=== PATIENT | female | born 1985 | race Caucasian/White ===

== ENCOUNTER 2017-02-10 11:16 | Inpatient (IN) | payer MEDICAID ==
[~2017-02-10] VITALS: Ht 175.3 cm; Wt 146.3 kg
[~2017-02-10 11:16] MED LIST: ACET-2723 PO; BUSP10TA3 PO; BUTA1CAP53; OMEP20CA10 PO; PREN1TAB73 PO; PROM25TA7 PO; SUCR1ORA3 PO
--- OUTSIDE RECORDS SUMMARY | 2017-02-10 14:07 | XMS REPORT | Continuity of Care Document ---
Author Author [facility] Organization [facility] Address Unknown Phone Unavailable Support Name Relationship Address Phone ELSA CORMIER MD Caregiver [address] [place] [address] Unavailable WENDY COFFMAN MD Caregiver [address] [place] [address] Unavailable JOHANN CRUZITO Next Of Kin [address] [place], [place] [id number] Insurance Providers Guarantor SethJesenia xiongtiesha Cifuentes Address [address] [place] [address] Email DENIED/NO TO PT PORT 16 Payer [facility] Policy Number [id number] Subscriber's Name Tootie Ann Relationship 18 Self Effective Date 16 Expiration Date 16 Advance Directives Directive Response Recorded Date/Time Ordered Resuscitation Status Full Code 12/03/16 5:56pm Problems Active Problems Medical Problem Onset Date Status Alcohol abuse Unknown Anxiety disorder Unknown Anxiety during in second trimester, antepartum Unknown Chronic Chronically on benzodiazepine therapy Unknown Chronic Diarrhea Unknown GERD (gastroesophageal reflux disease) Unknown Gastroenteritis Unknown Acute Gastroenteritis Unknown Acute History of methamphetamine abuse Unknown Induced Unknown Acute Influenza Unknown Acute Leukocytosis Unknown Acute Major depressive disorder Unknown with 16 completed weeks gestation Unknown Acute Proteinuria affecting in second trimester Unknown Recurrent epigastric abdominal pain Unknown Acute SAB (spontaneous ) Unknown Temporomandibular jaw dysfunction Unknown Acute Xanax use disorder, mild, abuse Unknown Past Problems Medical Problem Onset Date Low back pain Unknown Swelling of lower extremity during Unknown Vaginal bleeding in Unknown Medications Current Home Medications Medication Dose Units Route Directions Days Qty Instructions Start Date Acetaminophen (Tylenol Extra Strength) 500 Mg Tablet 1-2 Tab Oral Every 6 Hours as needed for Pain/Fever 12/03/16 Buspirone Hcl 10 Mg Tablet 10 Mg Oral Three Times A Day as needed for Anxiety 90 Tablet 09/12/16 Butalb/Acetaminophen/Caffeine (Fioricet 50-300-40 Mg Capsule) 1 Each Capsule 1 Cap 12/03/16 Omeprazole 20 Mg Capsule.dr 20 Mg Oral Before Breakfast 30 Capsule Take 1 capsule, by mouth, one time a day (before breakfast). 11/07/16 Pnv95/Ferrous Fumarate/Fa ( Tablet) 1 Each Tablet 1 Tab Oral Daily 08/12/16 Promethazine Hcl 25 Mg Tablet 25 Mg Oral As Needed 08/12/16 Sucralfate (Carafate) 1 Gm/10 Ml Oral.susp 1 G Oral Daily Past Home Medications Medication Directions Ordered Status Acetaminophen/Hydrocodone Bitart ([place] 7.5-325 Tablet) 7.5-325 Tablet, 1 Tab Oral Every 4 Hours as needed for Pain 09/12/16 Discontinued Acetaminophen/Hydrocodone Bitart ([place] 10-325 Tablet) 1 Each Tablet, 1 Tab Oral Every 4 Hours 05/15/15 Discontinued Alprazolam (Xanax) 2 Mg Tablet, 2 Mg Oral Daily 08/12/16 Discontinued Buspirone Hcl Unknown Strength Tablet, 1 Tab Oral Twice A Day 08/12/16 Discontinued Cephalexin Monohydrate (Keflex) 500 Mg Capsule, 500 Mg Oral Three Times A Day 11/28/10 Discontinued Cyclobenzaprine Hcl (Flexeril) 10 Mg Tablet, 10 Mg Oral Daily 11/28/10 Discontinued Enzymes,Digestive (Digestive Enzymes) 1 Tab.chew Tab.chew, 2 Tab.chew Oral With Meals 08/07/12 Discontinued Hydrocodone/Acetaminophen ([place] 5-325 Tablet) 1 Each Tablet, 1 Tab Oral Four Times Daily as needed for Pain, Cough 11/06/14 Discontinued Milk Thistle Seed Extract (Milk Thistle) 140 Mg Capsule, Daily 11/06/14 Discontinued Omeprazole 20 Mg Capsule.dr, 20 Mg Oral Before Breakfast 09/12/16 Discontinued Ranitidine Hcl (Zantac 75) 75 Mg Tablet, 75 Mg Oral As Needed 09/16/11 Discontinued Social History Social History Problem Response Recorded Date/Time Onset Date Status Chewing Tobacco Status No 04/23/2014 9:00pm Not Applicable Not Applicable Hx Substance Use Y MARIJUANA OCCASIONALLY 08/12/2016 4:05pm Not Applicable Not Applicable Hx Alcohol Use Y DENIES 08/12/2016 4:05pm Not Applicable Not Applicable Has the pt used tobacco in the last 12 months Yes 11/07/2016 5:55pm Not Applicable Not Applicable Tobacco Usage smoke 04/25/2014 4:31am Not Applicable Not Applicable Query Response Start Date Stop Date Smoking Status Current every day smoker Hospital Discharge Instructions No hospital discharge instructions. Plan of Care Discharge Date 12/03/16 6:51pm Prescriptions See Medication Section Functional Status No functional status results. Allergies, Adverse Reactions, Alerts Allergen Type Severity Reaction Status Last Updated Cephalexin Monohydrate Allergy Severe THROAT SWELLS Active 08/12/16 NSAIDS (Non-Steroidal Anti-Inflamma Allergy Severe ULCER Active 08/12/16 Penicillin Allergy Severe SWOLLEN THROAT Active 08/12/16 Sulfa (Sulfonamide Antibiotics) Adverse Reaction Unknown HALLUCINATIONS Active 08/12/16 Tramadol Allergy Severe convulsions Active 08/12/16 Latex Allergy Unknown Active 08/12/16 Immunizations Query Response on File Recorded Date/Time Hx Influenza Vaccination N refused 11/07/16 5:55pm Hx Pneumococcal Vaccination No 11/07/16 5:55pm Hx Tetanus, Diptheria, Pertussis No 07/19/15 9:11pm Hx Influenza Vaccination N refused 11/07/16 5:55pm Hx Tetanus Diptheria No 07/19/15 9:11pm Hx Tetanus, Diptheria, Pertussis No 07/19/15 9:11pm Influenza Vaccine Hx never 09/11/16 12:22pm Tdap Vaccine Hx SKIN INTACT 08/12/16 4:10pm Vital Signs Acute Vital Signs Vital Response Date/Time Temperature (Fahrenheit) 98.5 deg F (96.8 - 99.1) 09/12/2016 4:19pm Temperature (Calculated Celsius) 36.21964 degrees C (36.0 - 37.3) 09/12/2016 4:19pm Pulse Rate (adult) 86 bpm (60 - 100) 09/12/2016 4:19pm Respiratory Rate 18 breaths/min (10 - 20) 11/07/2016 5:58pm O2 Sat by Pulse Oximetry 97 % (90 - 100) 09/12/2016 4:19pm Oxygen Delivery Method Room Air 09/12/2016 4:19pm Blood Pressure 117/69 mm Hg 09/12/2016 4:19pm Blood Pressure Source Automatic Cuff 09/12/2016 4:19pm Height (Feet) 5 feet 11/07/2016 5:52pm Height (Inches) 9.00 inches 11/07/2016 5:52pm Weight (Kilograms) 135.800 kg 11/07/2016 5:52pm Body Mass Index (BMI) 44.2 11/07/2016 5:52pm Results Laboratory Results Test Name Result Units Flags Reference Collection Date/Time Result Date/ Time Comments Neutrophils (%) (Auto) 67.2 % H 33-66 09/12/2016 4:05am 09/12/2016 5: 20am Lymphocytes (%) (Auto) 24.6 % 23-45 09/12/2016 4:05am 09/12/2016 5: 20am Monocytes (%) (Auto) 6.1 % 0-9.0 09/12/2016 4:05am 09/12/2016 5:20am Eosinophils (%) (Auto) 0.8 % 0-4 09/12/2016 4:05am 09/12/2016 5:20am Basophils (%) (Auto) 0.2 % 0-2 09/12/2016 4:05am 09/12/2016 5:20am Immature Granulocyte % (Auto) 1.1 % H 0.0-0.5 09/12/2016 4:05am 2015 5:20am Absolute Neutrophils (auto) 7.4 T/MM3 1.8-7.7 09/12/2016 4:05am 2015 5:20am Absolute Lymphocytes (auto) 2.7 T/MM3 1-4.8 09/12/2016 4:05am 2015 5:20am Absolute Monocytes (auto) 0.7 T/MM3 0-0.8 09/12/2016 4:05am 09/12/2016 5:20am Absolute Eosinophils (auto) 0.1 T/MM3 0-0.5 09/12/2016 4:05am 2015 5:20am Absolute Basophils (auto) 0.0 T/MM3 0-0.2 09/12/2016 4:05am 09/12/2016 5:20am Absolute Immature Granulocyte (auto 0.12 T/MM3 H 0.00-0.03 09/12/2016 4: 05am 09/12/2016 5:20am Lipase 27 U/L 23-300 09/11/2016 1:39pm 09/11/2016 2:28pm Magnesium Level 1.9 MG/DL 1.6-2.3 09/12/2016 4:05am 09/12/2016 5:37am Hepatitis C Antibody NEGATIVE NEGATIVE 09/11/2016 1:39pm 09/13/2016 2 :46am Stool Campylobacter PCR NEGATIVE NEGATIVE 09/11/2016 10:26pm 2015 12:21am Stool C. difficile Toxin (PCR) NEGATIVE NEGATIVE 09/11/2016 10:26pm 09/12/2016 12:21am Stool Plesiomonas shigelloides PCR NEGATIVE NEGATIVE 09/11/2016 10: 26pm 09/12/2016 12:21am Stool Salmonella PCR NEGATIVE NEGATIVE 09/11/2016 10:26pm 09/12/2016 12:21am Stool Vibrio (PCR) NEGATIVE NEGATIVE 09/11/2016 10:26pm 09/12/2016 12 :21am Stool Vibrio cholera (PCR) NEGATIVE NEGATIVE 09/11/2016 10:26pm 09/12 12:21am Stool Yersinia enterocolitica (PCR) NEGATIVE NEGATIVE 09/11/2016 10: 26pm 09/12/2016 12:21am Stool Enteroaggregative E. coli PCR NEGATIVE NEGATIVE 09/11/2016 10: 26pm 09/12/2016 12:21am Stool Enteropathogenic E. coli (PCR NEGATIVE NEGATIVE 09/11/2016 10: 26pm 09/12/2016 12:21am Stool Enterotoxigenic Ecoli PCR NEGATIVE NEGATIVE 09/11/2016 10:26pm 09/12/2016 12:21am Stool E. coli Shiga Toxins NEGATIVE NEGATIVE 09/11/2016 10:26pm 09/12 12:21am Stool E coli O157 PCR N/A NA/NEG 09/11/2016 10:26pm 09/12/2016 12: 21am Stool Shigella/EIEC (PCR) NEGATIVE NEGATIVE 09/11/2016 10:26pm 2015 12:21am Stool Cryptosporidium PCR NEGATIVE NEGATIVE 09/11/2016 10:26pm 2015 12:21am Stool Cyclospora species Detection NEGATIVE NEGATIVE 09/11/2016 10: 26pm 09/12/2016 12:21am Stool Entamoeba (PCR) NEGATIVE NEGATIVE 09/11/2016 10:26pm 2015 12:21am Stool Giardia Lamblia PCR NEGATIVE NEGATIVE 09/11/2016 10:2015 12:21am Stool Adenovirus (PCR) NEGATIVE NEGATIVE 09/11/2016 10:2015 12:21am Stool Astrovirus (PCR) NEGATIVE NEGATIVE 09/11/2016 10:2015 12:21am Stool Norovirus GI/GII PCR NEGATIVE NEGATIVE 09/11/2016 10:pm 09/12 12:21am Stool Rotavirus A PCR NEGATIVE NEGATIVE 09/11/2016 10:2015 12:21am Stool Sapovirus (PCR) NEGATIVE NEGATIVE 09/11/2016 10:2015 12:21am Urine Collection Type CLEANCATCH-MIDSTREAM 09/11/2016 2:2015 2:38pm Urine Color YELLOW YELLOW 09/11/2016 2:09/11/2016 2:38pm Urine Turbidity CLEAR CLEAR 09/11/2016 2:09/11/2016 2:38pm Urine Specific [place] >=1.030 H 1.015-1.025 09/11/2016 2:2015 2:38pm Urine pH 6.0 5.0-8.0 09/11/2016 2:09/11/2016 2:38pm Urine Leukocyte Esterase NEGATIVE NEGATIVE 09/11/2016 2:2015 2:38pm Urine Nitrite NEGATIVE NEGATIVE 09/11/2016 2:09/11/2016 2:38pm Urine Protein NEGATIVE NEGATIVE 09/11/2016 2:09/11/2016 2:38pm Urine Glucose (UA) 1+ A NEGATIVE 09/11/2016 2:09/11/2016 2:38pm Urine Ketones 3+ A NEGATIVE 09/11/2016 2:09/11/2016 2:38pm Urine Urobilinogen 0.2 EU/DL NORMAL 09/11/2016 2:09/11/2016 2: 38pm Urine Bilirubin NEGATIVE NEGATIVE 09/11/2016 2:09/11/2016 2: 38pm Urine Blood 2+ A NEGATIVE 09/11/2016 2:09/11/2016 2:38pm Urine WBC 1-3 /HPF 0-5 09/11/2016 2:pm 09/11/2016 2:55pm Urine RBC 1-3 /HPF 0-3 09/11/2016 2:22pm 09/11/2016 2:55pm Urine Squamous Epithelial Cells 5-10 09/11/2016 2:22pm 09/11/2016 2 :55pm Urine Bacteria 2+ H NEGATIVE 09/11/2016 2:22pm 09/11/2016 2:55pm Urine Mucus PRESENT 09/11/2016 2:22pm 09/11/2016 2:55pm Urine Culture Indicated CULT NOT INDICATED 09/11/2016 2:22pm 2015 2:55pm White Blood Count 15.9 T/MM3 H 4.5-11.0 11/07/2016 5:00pm 11/07/2016 5: 24pm Red Blood Count 3.65 M/MM3 L 4.00-5.20 11/07/2016 5:00pm 11/07/2016 5: 24pm Hemoglobin 11.2 GM/DL L 12-16 11/07/2016 5:00pm 11/07/2016 5:24pm Hematocrit 32.6 % L 36-46 11/07/2016 5:00pm 11/07/2016 5:24pm Mean Corpuscular Volume 89.3 UM3 80-100 11/07/2016 5:00pm 11/07/2016 5: 24pm Mean Corpuscular Hemoglobin 30.7 UUG 26-34 11/07/2016 5:00pm 2016 5:24pm Mean Corpuscular Hemoglobin Concent 34.4 GM/DL 31-37 11/07/2016 5:00pm 11/07/2016 5:24pm RDW Standard Deviation 41.8 FL 36.9-50.2 11/07/2016 5:00pm 11/07/2016 5 :24pm Platelet Count 237 T/MM3 130-400 11/07/2016 5:00pm 11/07/2016 5:24pm Mean Platelet Volume 11.0 UM3 9.4-12.4 11/07/2016 5:00pm 11/07/2016 5: 24pm Neutrophils % (Manual) 67.0 % H 33-66 11/07/2016 5:00pm 11/07/2016 6: 12pm Band Neutrophils % 3.0 % 0-6 11/07/2016 5:00pm 11/07/2016 6:12pm Lymphocytes % (Manual) 25.0 % 23-45 11/07/2016 5:00pm 11/07/2016 6: 12pm Monocytes % (Manual) 3.0 % 0-9.0 11/07/2016 5:00pm 11/07/2016 6:12pm Eosinophils % (Manual) 1.0 % 0-4 11/07/2016 5:00pm 11/07/2016 6:12pm Metamyelocytes % 1.0 % H 0-0 11/07/2016 5:00pm 11/07/2016 6:12pm Band Neutrophils # 0.5 T/MM3 11/07/2016 5:00pm 11/07/2016 6:12pm Absolute Neutrophils (Manual) 10.7 T/MM3 H 1.8-7.7 11/07/2016 5:00pm 06/2017 6:12pm Lymphocytes # (Manual) 4.0 T/MM3 1-4.8 11/07/2016 5:00pm 11/07/2016 6: 12pm Monocytes # (Manual) 0.5 T/MM3 0-0.8 11/07/2016 5:00pm 11/07/2016 6: 12pm Eosinophils # (Manual) 0.2 T/MM3 0-0.5 11/07/2016 5:00pm 11/07/2016 6: 12pm Metamyelocytes # 0.2 T/MM3 11/07/2016 5:00pm 11/07/2016 6:12pm Red Cell Morphology Comment NORMAL 11/07/2016 5:00pm 11/07/2016 6: 12pm Icterus Index < 2 0-7 11/07/2016 5:00pm 11/07/2016 5:31pm Chemistry Specimen Hemolysis < 15 0-25 11/07/2016 5:00pm 11/07/2016 5 :31pm 0-25: Specimen Exhibited No Hemolysis. Turbidity < 20 0-20 11/07/2016 5:00pm 11/07/2016 5:31pm Sodium Level 137 MEQ/L 134-144 11/07/2016 5:00pm 11/07/2016 5:31pm Potassium Level 3.6 MEQ/L 3.6-5 11/07/2016 5:00pm 11/07/2016 5:31pm Chloride Level 106 MEQ/L 98-107 11/07/2016 5:00pm 11/07/2016 5:31pm Carbon Dioxide Level 23 MEQ/L 22-30 11/07/2016 5:00pm 11/07/2016 5: 31pm Anion Gap 8 MEQ/L 5-15 11/07/2016 5:00pm 11/07/2016 5:31pm Blood Urea Nitrogen 7.0 MG/DL 7-17 11/07/2016 5:00pm 11/07/2016 5:31pm Creatinine 0.5 MG/DL L 0.7-1.2 11/08/2016 7:00pm 11/08/2016 8:01pm BUN/Creatinine Ratio 14 RATIO 6-26 11/07/2016 5:00pm 11/07/2016 5:31pm Glomerular Filtration Rate Calc 142 11/08/2016 7:00pm 11/08/2016 8: 01pm Glucose Level 82 MG/DL 65-110 11/07/2016 5:00pm 11/07/2016 5:31pm Calculated Osmolality 261 MOSM/KG 261-280 11/07/2016 5:00pm 11/07/2016 5:31pm Calcium Level 9.1 MG/DL 8.4-10.2 11/07/2016 5:00pm 11/07/2016 5:31pm Total Bilirubin 0.30 MG/DL 0.20-1.30 11/07/2016 5:00pm 11/07/2016 5: 31pm Alkaline Phosphatase 90 U/L 38-126 11/07/2016 5:00pm 11/07/2016 5:31pm Total Protein 6.4 G/DL 6.3-8.2 11/07/2016 5:00pm 11/07/2016 5:31pm Albumin 3.6 G/DL 3.5-5.0 11/07/2016 5:00pm 11/07/2016 5:31pm Globulin 2.8 G/DL 2.4-3.6 11/07/2016 5:00pm 11/07/2016 5:31pm Albumin/Globulin Ratio 1.3 RATIO 1.1-2.2 11/07/2016 5:00pm 11/07/2016 5 :31pm Aspartate Amino Transf (AST/SGOT) 17 U/L 14-36 11/07/2016 5:00pm 2016 5:31pm Alanine Aminotransferase (ALT/SGPT) 26 U/L 9-52 11/07/2016 5:00pm 11/07 5:31pm Urine Creatinine 110.5 MG/DL 11/08/2016 7:00pm 11/08/2016 8:12pm Creatinine Clearance 24 Hour 183.0 ML/MIN H 75-115 11/08/2016 7:00pm 07/2017 8:12pm Patient Height (Urine) 175.3 CM 11/08/2016 7:00pm 11/08/2016 8:01pm Patient Weight (Urine) 136 KG 11/08/2016 7:00pm 11/08/2016 8:01pm Urine Total Volume 1.700 L 11/08/2016 7:00pm 11/08/2016 8:01pm Urine Collection Time 24 HRS 11/08/2016 7:00pm 11/08/2016 8:01pm U Collection Duration (Protein) 24 Hr 11/07/2016 7:00pm 11/09/2016 11 :39pm Protein Timed Urine performed at [facility], [address] [place] [address] Buying Intern Stephanie Oliver DO Urine Total Protein mg/dL 7 mg/dL 1-14 11/07/2016 7:00pm 11/09/2016 11: 46pm Urine Total Protein Timed 119.0 mg/24hrs 0.0-299.0 11/07/2016 7:00pm 11:46pm Value may increase up to 300mg/24hour following exercise. Reported as mg/hrs collected, reference range is based on 24 hr collection. Urine Total Volume 1700 mL 11/07/2016 7:00pm 11/09/2016 11:39pm Procedures Procedure Status Date Provider(s) Routine venipuncture Completed 09/11/16 Routine venipuncture Completed 09/11/16 Us exam abdom complete Completed 09/11/16 Comprehen metabolic panel Completed 09/11/16 Urinalysis auto w/scope Completed 09/11/16 Assay of lipase Completed 09/11/16 Assay of magnesium Completed 09/11/16 Complete cbc w/auto diff wbc Completed 09/11/16 Hepatitis c ab test Completed 09/11/16 Iadna-dna/rna probe tq 12-25 Completed 09/11/16 Ther/proph/diag iv inf init Completed 09/11/16 Ther/proph/diag iv inf addon Completed 09/11/16 Ther/proph/diag iv inf addon Completed 09/11/16 Tx/proph/dg addl seq iv inf Completed 09/11/16 Tx/pro/dx inj new drug addon Completed 09/11/16 Tx/pro/dx inj new drug addon Completed 09/11/16 Tx/pro/dx inj same drug licensed home inspector Completed 09/11/16 Tx/pro/dx inj same drug licensed home inspector Completed 09/11/16 Behav chng smoking 3-10 min Completed 09/11/16 Behav chng smoking 3-10 min Completed 09/11/16"HOSPITAL OBSERVATION SERVICE, PER HOUR" Completed 09/11/16"HOSPITAL OBSERVATION SERVICE, PER HOUR" Completed 09/11/16"HOSPITAL OBSERVATION SERVICE, PER HOUR" Completed 09/11/16"HOSPITAL OBSERVATION SERVICE, PER HOUR" Completed 09/11/16"INJECTION, HYDROMORPHONE, UP TO 4 MG" Completed 09/11/16"INJECTION, HYDROMORPHONE, UP TO 4 MG" Completed 09/11/16"INJECTION, HYDROMORPHONE, UP TO 4 MG" Completed 09/11/16"INJECTION, HYDROMORPHONE, UP TO 4 MG" Completed 09/11/16"INJECTION, HYDROMORPHONE, UP TO 4 MG" Completed 09/11/16"INJECTION, HYDROMORPHONE, UP TO 4 MG" Completed 09/11/16"INJECTION, HYDROMORPHONE, UP TO 4 MG" Completed 09/11/16"INJECTION, HYDROMORPHONE, UP TO 4 MG" Completed 09/11/16"INJECTION, DIMENHYDRINATE, UP TO 50 MG" Completed 09/11/16"INJECTION, DIMENHYDRINATE, UP TO 50 MG" Completed 09/11/16"INJECTION, DIMENHYDRINATE, UP TO 50 MG" Completed 09/11/16"INJECTION, DIMENHYDRINATE, UP TO 50 MG" Completed 09/11/16"INJECTION, DIMENHYDRINATE, UP TO 50 MG" Completed 09/11/16"INJECTION, ONDANSETRON HYDROCHLORIDE, PER 1 MG" Completed 09/11/16"INJECTION, ONDANSETRON HYDROCHLORIDE, PER 1 MG" Completed 09/11/16221920"INJECTION, POTASSIUM CHLORIDE, PER 2 MEQ" Completed 09/11/16391904"INJECTION, POTASSIUM CHLORIDE, PER 2 MEQ" Completed 09/11/16"INFUSION, NORMAL SALINE SOLUTION , 250 CC" Completed 09/11/16317442"INFUSION, NORMAL SALINE SOLUTION , 250 CC" Completed 09/11/16423297"INFUSION, NORMAL SALINE SOLUTION , 250 CC" Completed 09/11/16549216"INFUSION, NORMAL SALINE SOLUTION , 250 CC" Completed 09/11/16343423"RINGERS LACTATE INFUSION, UP TO 1000 CC" Completed 09/11/16 D5LR 1000 ML Completed 09/11/16 D5LR 1000 ML Completed 09/11/16 D5LR 1000 ML Completed 09/11/16 D5LR 1000 ML Completed 09/11/16 Compound Drug, Not Otherwise Classified Completed 09/11/16007594"INJECTION, FAMOTIDINE, 20 MG" Completed 09/11/16"INJECTION, FAMOTIDINE, 20 MG" Completed 09/11/16 Comprehen metabolic panel Completed 11/07/16 Creatinine clearance test Completed 11/07/16 Assay of protein urine Completed 11/07/16 Complete cbc w/auto diff wbc Completed 11/07/16 Hydrate iv infusion add-on Completed 11/07/16 Ther/proph/diag inj iv push Completed 11/07/16"HOSPITAL OBSERVATION SERVICE, PER HOUR" Completed 11/07/16"HOSPITAL OBSERVATION SERVICE, PER HOUR" Completed 11/07/16"INJECTION, NALBUPHINE HYDROCHLORIDE, PER 10 MG" Completed 11/07/16"RINGERS LACTATE INFUSION, UP TO 1000 CC" Completed 11/07/16 Encounters Encounter Location Arrival/Admit Date Discharge/Depart Date Attending Provider Departed Clinic [facility] 12/03/16 5:36pm 12/03/16 6:51pm ELSA CORMIER MD Discharged Inpatient (obs) [facility] 11/07/16 4:23pm 11/07/16 7: 35pm ELSA CORMIER MD Discharged Inpatient (obs) [facility] 09/11/16 11:46am 09/12/16 6 :50pm JESUS COHN MD
[2017-02-10] MEDS ORDERED: CALCIUM CARBONATE 500mg Chewable TAB PO PRN (15:15)
[2017-02-10] MEDS ORDERED: TERBUTALINE 1 MG/ML INJECTION SQ PRN ×2 (15:15→17:15)
[2017-02-10] MEDS ORDERED: DINOPROSTONE 10 MG VAGINAL INSERT VAGINALLY ONE ×2 (15:15→17:15)
[2017-02-10] MEDS ORDERED: DiphenhydrAMINE 25 MG CAPSULE PO PRN ×2 (15:15→17:15)
[2017-02-10] MEDS ORDERED: LIDOCAINE 1% (10mg/ml) 2ml SDV ID PRN (15:15)
[2017-02-10] MEDS ORDERED: MAG-AL + SIM LIQUID 30 ML UDC PO PRN (15:15)
[2017-02-10 15:25] LABS: HCT - HEMATOCRIT 31.4 % (36-46); HGB - HEMOGLOBIN 10.1 GM/DL (12-16); MEAN CORPUSCULAR HGB 27.3 UUG (26-34); MEAN CORPUSCULAR HGB CONC(MCHC 32.2 GM/DL (31-37); MEAN CORPUSCULAR VOLUME 84.9 UM3 (80-100); MEAN PLATELET VOLUME 10.8 UM3 (9.4-12.4); RED BLOOD COUNT 3.7 M/MM3 (4.00-5.20); WBC - WHITE BLOOD COUNT 15.3 T/MM3 (4.5-11.0)
[2017-02-10] MEDS ORDERED: AMIT10TA6 PO (15:45)
[2017-02-10 15:51] VITALS: BP 119/77; PULSE 105; RESP 20; TEMP 98.4; O2SAT 98
[2017-02-10 16:40] LABS: ALBUMIN 3.6 G/DL (3.5-5.0); ALBUMIN/GLOBULIN RATIO 1.1 RATIO (1.1-2.2); ALKALINE PHOSPHATASE 151 U/L (38-126); ALT (SGPT) 23 U/L (9-52); ANION GAP 12 MEQ/L (5-15); AST (SGOT) 20 U/L (14-36); BUN/CREATININE RATIO 18 RATIO (6-26); CALCIUM 9.3 MG/DL (8.4-10.2); CHLORIDE 106 MEQ/L (98-107); CO2 - CARBON DIOXIDE 19 MEQ/L (22-30); CREATININE 0.5 MG/DL (0.7-1.2); GLOMERULAR FILTRATION RATE 142; GLUCOSE 131 MG/DL (65-110); POTASSIUM 4.4 MEQ/L (3.6-5); SODIUM 137 MEQ/L (134-144); TOTAL PROTEIN 6.8 G/DL (6.3-8.2)
[2017-02-10] MEDS ORDERED: D5LR 1,000 ML IV PRN (17:15)
--- NOTE | 2017-02-10 17:20 | PNPDOC ---
Progress Note Date 02/10/17 Cervidil placed without difficulty. Reviewed plan for oxytocin in 12 hours. Bedside sono confirms cephalic presentation. Normotensive at this time. Q&A ELSA CORMIER MD Feb 10, 2017 17:20
[2017-02-10] MEDS: ACETAMINOPHEN 500 MG TABLET PO PRN (19:29)
[2017-02-11] VITALS (8 sets, daily range): BP systolic 114–132; BP diastolic 68–76; PULSE 89–102; RESP 17–22; TEMP 97.9–98.2; O2SAT 94–100
[2017-02-11] MEDS: ACETAMINOPHEN 500 MG TABLET PO PRN (03:10)
[2017-02-11] MEDS ORDERED: OXYTOCIN 30 UNIT in D5LR 500 ML SCH (04:30)
[2017-02-11] MEDS ORDERED: VANCOMYCIN 1 G in NORMAL SALINE 250 ML IV SCH (05:00)
[2017-02-11] MEDS: LR 1,000 ML IV PRN ×2 (05:19→13:28)
[2017-02-11] MEDS ORDERED: ZOLPIDEM 10 MG TABLET PO SCH (09:00)
[2017-02-11] MEDS ORDERED: NALBUPHINE 10mg/ml INJECTION IV ONE (10:30)
[2017-02-11] MEDS ORDERED: CLINDAMYCIN 900mg IVPB 50 ML IV ONE (13:45)
[2017-02-11] MEDS ORDERED: CITRIC ACID/SODIUM CITRATE 30 ML PO ONE (13:45)
[2017-02-11] MEDS ORDERED: FAMOTIDINE 20mg IVPB 50 ML IV ONE (13:45)
[2017-02-11] MEDS ORDERED: GENTAMICIN 120 MG in NORMAL SALINE 100 ML IV ONE (13:45)
--- NOTE | 2017-02-11 13:54 | ANESOB ---
Epidural/ Date/Time DATE: 02/11/17 TIME: 13:52 Preop Diagnosis Procedure: Plan: Spinal Height: 5 ' 9.00 " Weight: 146.300 kg BMI: kg/m2 P:0 Medications & Allergies Inpatient Medications Current Medications Medications (Trade) Dose Ordered Sig/Messi Start Time Stop Time Status Last Admin Dose Admin Diphenhydramine HCl (Benadryl) 50 mg HS PRN 02/10/17 15:15 Terbutaline Sulfate (Brethine) 0.25 mg PRN PRN 02/10/17 15:15 Lidocaine HCl 0.2 mg 0.2 mg PRN PRN 02/10/17 15:15 02/10/17 15:37 DC Lactated Ringer's (Lactated Ringers) 1,000 ml @ 0 mls/hr Q0M PRN 02/10/17 15:07 02/11/17 05:19 0 MLS/HR Acetaminophen (Tylenol Extra Strength) 1-2 TABS = 500-1,000 MG Q4H PRN 02/10/17 15:15 02/11/17 03:10 1,000 MG Al Hydroxide/Mg Hydroxide (Maalox) 30 ml Q4H PRN 02/10/17 15:15 Calcium Carbonate (TUMS Regular Strength) 1-2 TABS Q2H PRN 02/10/17 15:15 Diphenhydramine HCl (Benadryl) 50 mg HS PRN 02/10/17 17:15 02/10/17 19:51 DC Terbutaline Sulfate (Brethine) 0.25 mg PRN PRN 02/10/17 17:15 02/10/17 19:51 DC Zolpidem Tartrate 10 mg 10 mg DAILY 02/11/17 09:00 02/10/17 21:59 10 MG Dextrose/Lactated Ringer's 1,000 ml @ 0 mls/hr Q0M PRN 02/10/17 17:15 02/11/17 05:18 0 MLS/HR Oxytocin 30 unit/ Dextrose/Lactated Ringer's 503 ml @ 0 mls/hr Q0M 02/11/17 04:30 02/11/17 05:19 0 MLS/HR Vancomycin HCl/ Sodium Chloride (Vancocin/NS) 250 ml @ 250 mls/hr Q12H 02/11/17 05:00 02/11/17 05:19 250 MLS/HR Acetaminophen (Tylenol Extra Strength) 500 Mg Tablet, 1-2 TAB PO Q6H PRN for PAIN/FEVER, (Reported) Last Taken: on 02/10/17 1000 Amitriptyline HCl (Amitriptyline HCl) 10 Mg Tablet, 1 TAB PO DAILY, (Reported) Last Taken: on 02/09/17 2100 Omeprazole (Omeprazole) 20 Mg Capsule.dr, 20 MG PO ACB Take 1 capsule, by mouth, one time a day (before breakfast). Last Taken: on 02/10/17 1200 Pnv95/Ferrous Fumarate/FA ( Tablet) 1 Each Tablet, 1 TAB PO DAILY, (Reported) Last Taken: on 02/09/172099 Coded Allergies: Cephalexin Monohydrate (Verified Allergy, Severe, THROAT SWELLS, 08/12/16) NSAIDS (Non-Steroidal Anti-Inflamma (Verified Allergy, Severe, ULCER, ) Penicillins (Verified Allergy, Severe, SWOLLEN THROAT, 08/12/16) tramadol (Verified Allergy, Severe, convulsions, 08/12/16) latex (Verified Allergy, Unknown, 08/12/16) Sulfa (Sulfonamide Antibiotics) (Verified Adverse Reaction, Unknown, HALLUCINATIONS, 08/12/16) Medical/Surgical History Anesthesia PMH: Reports: *Hypertension (PIH), Obesity (Morbid), , Reflux (IBS), Seizures (from medication withdrawl (Xanax), also seizures from Tramadol), Denies: *Angina, *Diabetes, *Dyspnea, *OR, Anesthesia Reactions (NO AIRWAY ISSUES), Asthma, Bld Transfusion Reaction, CHF, COPD, CVA/Stroke/TIA, Cancer, Glaucoma, Hepatitis, Hiatal Hernia, Malignant Hyperthermia, Pacemaker, Pneumonia, Renal Disease, Rheumatic Fever, Sleep Apnea, Thyroid Disease, Tuberculosis Smoking Status: Current every day smoker # of Packs/Tins per Day: 1/2 Does patient use chewing tobac: No Second Hand Exposure: No Substance Use Type: former substance user, marijuana, crack/cocaine, methamphetamine, prescription drug Alcohol Intake: a few times a week Anesthesia Adverse Reactions: FOUND none Hx of Motion Sickness: No Patient's Surgical History: Appy [place] D&C x 2 Complications During : Yes (HTN, GERD) Pertinent Findings Laboratory Tests 02/10/17 15:17 02/10/17 15:19 Physical Exam Respiratory: Bilat breath sounds equal, Lungs clear Cardiovascular: Regular rate, rhythm Airway Assessment Mallampati Score: II TMD: 3 Fingerbreadths ASA: 3, E Discussion Discussed risks/options/alternatives of anesthesia. Patient consents. Nursing pain assessment noted. Attestation Statement Prior to the delivery of any anesthetic medication, I examined the patient, developed the plan, obtained the patient's consent and discussed the risk and benefits of the procedure with the patient/guardian. If the note happens to be signed after anesthesia start time, it is only due to providing efficient care of the patient and documenting at a time when the computer is available. SHALA BOLAÑOS [employer] Feb 11, 2017 13:54
[2017-02-11] MEDS ORDERED: MORPHINE SULFATE PF 5mg/10ml VL (DURAMORPH) ONE (13:58)
[2017-02-11] MEDS ORDERED: EPINEPHRINE 1mg/ml INJECTION AMP ONE (13:59)
[2017-02-11] MEDS ORDERED: ONDANSETRON 4mg/2ml INJECTION ONE (13:59)
[2017-02-11] MEDS ORDERED: FENTANYL 100mcg/2ml INJECTION ONE (13:59)
[2017-02-11] MEDS ORDERED: DiphenhydrAMINE 50 MG/ML INJECTION IV PRN (15:45)
[2017-02-11] MEDS ORDERED: NALOXONE 0.4mg/ml INJECTION IV PRN (15:45)
[2017-02-11] MEDS ORDERED: NALBUPHINE 10mg/ml INJECTION IV PRN (15:45)
[2017-02-11] MEDS ORDERED: ONDANSETRON 4mg/2ml INJECTION IV PRN ×2 (15:45→16:00)
--- NOTE | 2017-02-11 15:49 | ANESPO ---
Post-Op Note Date 02/11/17 Time: 15:48 Status Pt Participated in Evaluation: Pt participated in person Vital Signs Date Time Temp Pulse Resp B/P Pulse Ox O2 Delivery O2 Flow Rate FiO2 02/11/17 11:44 20 02/10/17 15:51 98.4 105 119/77 98 Room Air Respiratory Function: Airway patent, Regular respirations Cardiovascular Function: Regular pulse Telemetry Pattern: SR Mental Status: Alert/oriented Pain Level Intensity: 0 Unable to Assess Pain Due To: Pt Sleeping Hydration: IV infusing Complications during Recovery None apparent Follow-Up Instructions Instructions Per Surgeon SHALA BOLAÑOS CRNA Feb 11, 2017 15:49
[2017-02-11] MEDS ORDERED: OXYTOCIN 30 UNIT in D5LR 500 ML IV SCH (15:51)
[2017-02-11] MEDS ORDERED: ACETAMINOPHEN 500 MG TABLET PO PRN (16:00)
[2017-02-11] MEDS ORDERED: MILK OF MAGNESIA 30 ML SUSP PO PRN (16:00)
[2017-02-11] MEDS ORDERED: ZOLPIDEM 10 MG TABLET PO PRN (16:00)
[2017-02-11] MEDS ORDERED: HYDROCORTISONE 2.5% CREAM 30 GM RECTALLY PRN (16:00)
[2017-02-11] MEDS ORDERED: METOCLOPRAMIDE 10mg/2ml INJECTION IV PRN (16:00)
[2017-02-11] MEDS ORDERED: CALCIUM CARBONATE 500mg Chewable TAB PO PRN (16:00)
[2017-02-11] MEDS ORDERED: DiphenhydrAMINE 25 MG CAPSULE PO PRN (16:00)
[2017-02-11] MEDS ORDERED: GENTAMICIN IV ONE (16:30)
[2017-02-11] MEDS ORDERED: NS IV ONE (16:30)
[2017-02-11] MEDS: OXYCODONE/APAP 5mg/325mg TABLET PO PRN ×2 (16:54→20:46)
--- NOTE | 2017-02-11 17:38 | OPNOTEF ---
DATE OF SURGERY: 02/11/2017 PREOPERATIVE DIAGNOSES 1. 31-year-old white female, G2, P0, at 38 weeks 6 days gestational age. 2. Mild preeclampsia diagnosed by proteinuria. 3. Smoker. 4. Morbid obesity. 5. Cervidil cervical ripening. 6. Pitocin induction for preeclampsia. 7. Failure to progress. 8. GBS positive--vancomycin given. POSTOPERATIVE DIAGNOSIS Male , Apgars, 3778 grams (8 pounds 5 ounces), (Opal Sandy). PROCEDURES: Primary low transverse section. EBL: 1000 mL. PRIMARY SURGEON: Link Samson MD MANUFACTURING QUALITY TECHNICIAN: Ynes Hernandes MD COMPLICATIONS: None. However, due to patient's size and patient's request we did a midline skin incision rather than a Pfannenstiel. DESCRIPTION OF PROCEDURE After adequate spinal anesthesia, the patient was prepped and draped in the left lateral decubitus position. The patient is morbidly obese. Earlier this morning, she asked me if I would be willing to do a midline incision if she needed a because of her worries about infection in the pannus area. I told her if we got to that point we would reevaluate. After anesthesia I evaluated and I felt this was an acceptable incision to make given her situation. Therefore, a midline skin incision was made with a sharp knife starting to the left of the umbilicus and coming around and going down midline. This was carried down to the fascia which was incised vertically as well. Peritoneum was isolated, entered, and extended cephalad and caudad. Bladder blade was inserted, and I could see the uterus clearly. The patient never dilated past fingertip, and the baby was high and unengaged. Because of this, I went above the bladder and the bladder flap in my transverse incision. We knew we had an anterior placenta, and I ended up cutting the lower edge of the anterior placenta upon entering which caused a bit more bleeding than I had hoped for. The infant was in clear fluid and was delivered from the vertex position. Infant was bulb suctioned after delivery of the head and then again after delivery of the body. Cord was doubly clamped long and cut, and the infant was received by Dr. Kaushal Allen of Pediatrics. The placenta was expressed, and there is essentially no cord left to get cord blood gases so they will check baby's blood type from baby. The uterus was externalized and the bladder blade was reinserted. The uterus was cleansed with moist lap sponges. Tubes and ovaries looked fine. I closed the uterus with 0 Monocryl in a running locking fashion bilaterally from the lateral aspects medially. Hemostasis was confirmed and the posterior cul-de-sac was cleaned, and the uterus was returned to the abdominal cavity. Then I began closure of the abdominal cavity. Peritoneum was closed using 2-0 Vicryl in a running nonlocking fashion. Fascia was closed using 0 PDS in a looped suture starting at the superior apex and sewing down about two-thirds of the way, and then a different suture starting at the inferior apex and sewing up to it. Then they were tied together. Then hemostasis was achieved in the subcuticular area. We then went about closing the deep subcuticular layer. I used 2-0 Vicryl to close the Jennyfer's fascia and space. Then I used 3-0 Vicryl to bring the skin edges together and decrease the tension on the wound. Then I used maría to close the wound in a serial fashion. It was dry enough that I did not think a drain was indicated. Patient tolerated the procedure well and went to recovery room in stable condition. Because of her drug allergies, we had to give clindamycin and gentamicin preoperatively. KIANA
[2017-02-11] MEDS: SIMETHICONE 80 MG CHEWABLE TABLET PO CHEW SCH ×2 (18:30→21:32)
[2017-02-11] MEDS: D5LR 1,000 ML IV SCH (19:33)
[2017-02-11] MEDS: AMITRIPTYLINE 10 MG TABLET PO SCH (21:32)
[2017-02-11 21:38] LABS: HCT - HEMATOCRIT 31.1 % (36-46); MEAN CORPUSCULAR HGB 27.2 UUG (26-34); MEAN CORPUSCULAR HGB CONC(MCHC 32.2 GM/DL (31-37); MEAN CORPUSCULAR VOLUME 84.7 UM3 (80-100); MEAN PLATELET VOLUME 10.9 UM3 (9.4-12.4); RED BLOOD COUNT 3.67 M/MM3 (4.00-5.20); WBC - WHITE BLOOD COUNT 17.3 T/MM3 (4.5-11.0)
[2017-02-11] MEDS ORDERED: CLINDAMYCIN 900mg in D5W 50ml IV ONE (22:00)
[2017-02-11] MEDS: ALPRAZOLAM 1 MG TABLET PO PRN (23:59)
[2017-02-12] VITALS (8 sets, daily range): BP systolic 111–128; BP diastolic 71–88; PULSE 96–107; RESP 18–22; TEMP 93.3–98.2; O2SAT 95–99
[2017-02-12] MEDS: OXYCODONE/APAP 5mg/325mg TABLET PO PRN ×3 (01:01→09:34)
[2017-02-12] MEDS: D5LR 1,000 ML IV SCH ×2 (01:51→11:51)
[2017-02-12] MEDS ORDERED: OXYTOCIN 30 UNIT in D5LR 500 ML IV SCH (01:53)
--- NOTE | 2017-02-12 02:29 | NUR ---
Chart Check 24 hour chart check completed
--- NOTE | 2017-02-12 02:29 | NUR ---
SHIFT SUMMARY: PT had primary c/s for failure to progress on 02/11/17. At 1436, viable male baby weighing 3778gram was born. Dr Allen in attendance and assigned APGARS . VSS, pt taking PO Percocet 5 and Mylicon for incision pain. Fundus firm at 2 above umbilicus. Abdm binder used for stability and pain control. Incision dressing dry and intact. RN has provided pericare and changed sania pad multiple times this shift. Lochia has been light to moderate. At 2230, RN has pt dangle and stand at bedside, large amount of lochia had collected. RN provided sania care. When pt returned to bed and repositioned self multiple times, multiple small clots expelled. RN provided pericare again and assessed umbilicus at 1above umbilicus. RN continued to monitor, light to moderate lochia noted remainder of shift. IV in pt's right hand infusing Pitocin 50mU/hr and D5LR 100ml/hr, no complications. IV antibiotics administered per Dr Samson's order. Bilateral thigh-high SCD's on and pumping. Urinary schilling to dependent drain, adequate urine output noted. PT consumed general diet and tolerating PO fluids. Scheduled PO Elavil provided. PO Xanax provided per pt's request. Pt has been very anxious throughout the shift. Pt becomes most anxious when baby cries. RN discusses multiple times care of baby and what is normal activity for baby. RN assist pt with every , pt uncoordinated with positioning and latch. While attempting to breastfeed, pt asked baby "why do you hate me". RN worked with pt and baby at for approx. 50min. RN left the room. Pt states she was able to BF baby for 30min because she "wasn't being watched or had interfering". Pt states she did not take any child education but has read many books. RN provided "Baby's 1st Year" book and purple cry video. Josué in and out of room. When present, Josué wanting to assist pt.
[2017-02-12] MEDS: OMEPRAZOLE 20 MG CAPSULE PO SCH ×2 (08:30→17:38)
[2017-02-12] MEDS: SIMETHICONE 80 MG CHEWABLE TABLET PO CHEW SCH ×3 (09:34→17:37)
[2017-02-12] MEDS: DOCUSATE CALCIUM 240 MG CAPSULE PO SCH (09:34)
[2017-02-12] MEDS: PRENATAL VITAMIN TABLET PO SCH (09:34)
--- NOTE | 2017-02-12 10:58 | PNPDOC ---
MC Prog Note 02/12/17 vss af hgb stable can't take NSAIDs per pt and c/o pain issues still so will increase percocet to 7's. dressing dry q&a cont increase activity-JESUS Jasso MD Feb 12, 2017 10:58
--- NOTE | 2017-02-12 13:41 | NUR ---
Shift Summary: Pt has done well throughout the day. She had a couple hours of good sleep early this morning. She has been eating a regular diet, no nausea or dizziness. She has been up ambulating in the room and the halls. IV has been DC'd, Hood Catheter removed at 1315, pt has not voided yet. VSS, bleeding is minimal and pt is performing self cares. Abdominal binder in place. Pain was not controlled with Percocet 5, Dr. Samson increased them to Percocet 7. has gone well. Mother has been attempting every 2-3 hours and doing STS in between. Josué (MARY) is present and at bedside.
[2017-02-12] MEDS: ALPRAZOLAM 1 MG TABLET PO PRN (17:37)
[2017-02-12] MEDS: AMITRIPTYLINE 10 MG TABLET PO SCH (17:38)
[2017-02-13 01:30] VITALS: BP 130/72; PULSE 93; RESP 20; TEMP 96.5; O2SAT 96
[2017-02-13 06:18] VITALS: BP 125/94; PULSE 109; RESP 20; TEMP 98.2; O2SAT 96
[2017-02-13 06:25] VITALS: BP 124/72; PULSE 95; RESP 18
--- NOTE | 2017-02-13 06:30 | NUR ---
Abdominal discomfort Patient reports having passed a little gas for the first time this morning. Feels better, but requests MOM. Given.
--- NOTE | 2017-02-13 08:13 | PNPDOC ---
Progress Note PPD2 Rubella: Immune GBS: Positive Blood Type:B neg Subjective 02/13/17 Lochia: Minimal Pain: Controlled Voiding: Voiding Nausea and Vomiting: No Nausea/Vomiting Objective Vital Signs Date Time Temp Pulse Resp B/P Pulse Ox O2 Delivery O2 Flow Rate FiO2 02/13/17 06:25 95 18 124/72 02/13/17 06:18 98.2 96 Room Air Urine Output: Good General: Alert and Oriented Incision: Clean/Dry/Intact, No Erythema Extremities: Non-tender +1 bilat pretibial edema Assessment SP, Primary C/S Plan Routine Care Expected date of discharge: Feb 13, 2017 ELSA CORMIER MD Feb 13, 2017 08:13
[2017-02-13] MEDS: PRENATAL VITAMIN TABLET PO SCH (08:35)
[2017-02-13] MEDS: SIMETHICONE 80 MG CHEWABLE TABLET PO CHEW SCH ×3 (08:35→13:00)
[2017-02-13] MEDS: DOCUSATE CALCIUM 240 MG CAPSULE PO SCH (09:00)
[2017-02-13] MEDS: OXYCODONE I.R. 5 MG TABLET PO PRN ×2 (09:44→17:53)
--- NOTE | 2017-02-13 10:41 | NUR ---
CM THIS WORKER MET WITH PT AT THIS TIME. PT WAS LAYING IN BED HOLDING BABY. FOB AT BEDSIDE. THIS WORKER INTRODUCED SELF AND ROLE OF CASE MANAGEMENT. PARENTS DISCUSSED MULTIPLE FAMILY AND FRIENDS AVAILABLE IN [place]. MOTHER REPORTED THAT THEY HAVE MULTIPLE PEOPLE ASKING TO BRING FOOD AND HELP OUT IN THE HOME. PARENTS REPORTED THAT THEY HAVE ALL NECESSARY ITEMS FOR BABY AT THE HOME TO INCLUDE CRIB, DIAPERS, CLOTHING, CAR SEAT. MOTHER REPORTED THAT SHE HAS BEEN IN TOUCH WITH HER INSURANCE COMPANY AND THAT THEY ARE SENDING A BREAST PUMP THROUGH THE MAIL. MOTHER REPORTED THAT SHE HAS A MANUAL BREAST PUMP UNTIL HER ELECTRIC ONE ARRIVES BY MAIL. PARENTS REPORTED THAT THEY WILL CONTINUE TO SEE DR. WILLETT FOR BABY AND MOTHER WILL FOLLOW UP WITH DR. CORMIER. THIS WORKER INQUIRED REGARDING ANY OTHER NEEDS. PT AND FOB DENIED ANY NEEDS. PARENTS ARE PLANNING TO USE MEDICAID TRANSPORTATION FOR FOLLOW UP WITH [employer] APPOINTMENTS. DISCUSSION REGARDING THE LAB FOR TOMORROW FOR BABY'S LAB WAS DISCUSSED. THIS WORKER CALLED INSURANCE AND MADE TRANSPORTATION REQUEST FOR 02/14/17. PT WAS GIVEN THE REFERENCE NUMBER AND WILL PLAN TO CALL ON 02/14/17 TO CONFIRM THAT TRANSPORTATION WAS ARRANGED. MOTHER VERY FAMILIAR WITH THIS PROCESS SHE USES THIS TRANSPORTATION SERVICE ALL OF THE TIME. THIS WORKER REVIEWED ANY DRUG USE DURING . PT DENIED ANY USE DURING AND THAT SHE HAD SPOKED MARIJUANA PRIOR AND THAT "EVERYONE KEEPS ASKING ABOUT THAT." THIS WORKER EXPLAINED REASON FOR THE QUESTIONS. PT REPORTED UNDERSTANDING ABOUT WHY THAT I WOULD ASK THAT. PT REPORTED THAT SHE DOES HAVE SOME ANXIETY AND HAS MEDICATION THAT SHE CAN TAKE FOR THAT. THIS WORKER ALSO PROVIDED MOTHER AND FOB WITH INFORMATION ON THE [facility] PROGRAM OUT OF [facility]. MOTHER REPORTED KNOWLEDGE OF THIS PROGRAM. THIS WORKER PROVIDED CONTACT INFORMATION TO PARENTS AND ENCOURAGED TO CONTACT THIS WORKER WITH ANY NEEDS OR QUESTIONS EVEN AFTER DISCHARGE.
--- NOTE | 2017-02-13 14:58 | NUR ---
Shift summary Patient has been up and about in room. Reports pain about 2.5 hours after medication with [address] Castro ordered medication without Tylenol to use intermittently. Pain medication given q 4 hours. Rates pain at a "10" at it's worst, "7" at the best. Holding baby skin to skin at frequent intervals. Anticipating dismissal later today. Has ambulated off the unit to the cafeteria.
[2017-02-13 16:35] VITALS: BP 127/85; PULSE 97; RESP 20; TEMP 98.4; O2SAT 97
[2017-02-13] MEDS ORDERED: OXYC1TAB11 PO (16:51)
== END 2017-02-13 18:10 | disposition home or self-care (01) | DRG 765 ==
LOC: MC 14:01
PROVIDERS: ADMIT Obstetrics & Gynecology; ATTEND Obstetrics & Gynecology
PROC: 3E033VJ Introduction of Other Hormone into Peripheral Vein, Percutaneous Approach (ICD-10-PCS; 2017-02-11)
PROC: 10D00Z1 Extraction of Products of Conception, Low, Open Approach (ICD-10-PCS; principal; 2017-02-11 13:58)
DX: O62.0 Primary inadequate contractions (principal); Z68.42 Body mass index [BMI] 45.0-49.9, adult; O14.04 Mild to moderate pre-eclampsia, complicating childbirth; O99.334 Smoking (tobacco) complicating childbirth; F17.210 Nicotine dependence, cigarettes, uncomplicated; O99.214 Obesity complicating childbirth; E66.01 Morbid (severe) obesity due to excess calories; O99.824 Streptococcus B carrier state complicating childbirth; O36.63X0 Maternal care for excessive fetal growth, third trimester, not applicable or unspecified; O99.344 Other mental disorders complicating childbirth; F41.0 Panic disorder [episodic paroxysmal anxiety]; F32.9 Major depressive disorder, single episode, unspecified; O99.62 Diseases of the digestive system complicating childbirth; K21.9 Gastro-esophageal reflux disease without esophagitis; K58.9 Irritable bowel syndrome, unspecified; O09.893 Supervision of other high risk pregnancies, third trimester; Z3A.38 38 weeks gestation of pregnancy; Z37.0 Single live birth
CPT/HCPCS: 36415; 80053; 85027; 86850; 86870; 86900; 86901